=== PATIENT | male | born 1930 | race Caucasian/White ===

== ENCOUNTER 2016-09-12 10:44 | Emergency (ER) | payer MEDICARE, BC ==
[2016-09-12 10:51] VITALS: BP 139/74
--- OUTSIDE RECORDS SUMMARY | 2016-09-12 11:19 | XMS REPORT | Continuity of Care Document ---
:1930 Author Organization [facility] ([facility]) Address [address] [place] [address] Phone [phone] Care Team Providers Name Role Phone Niesha Tate Primary Care Provider [phone] Source Comments This disclosure is being made pursuant to the Care Everywhere program, applicable federal and state laws, and may not contain all informaitonavailable regarding this patient.[facility] ([facility]) Active Allergies and Adverse Reactions Allergen Noted Date Severity Reactions Comments Meperidine Hypotension Current Medications Prescription Sig. Disp. Refills Start End Date Status Date Ascorbic Acid Take 1,000 mg by mouth Active (VITAMIN C) 500 mg daily. CpSR MULTIVITAMINS take by mouth daily. Active (MULTIVITAMIN PO) CHOLECALCIFEROL Take 400 Units by mouth Active (VITAMIN D-3 PO) daily. metoPROLol tartrate Take 25 mg by mouth 2 Active 25 mg tablet times daily. nitroglycerin place 0.4 mg under the Active (NITROSTAT) 0.4 mg tongue every 5 minutes SL tablet as needed. PLACE 1 TABLET UNDER TONGUE EVERY 5 MINUTES FOR 3 DOSES atorvastatin 20 mg Take 1 Tab by mouth 90 Tab 3 Active tablet every evening. 3 Indications: HYPERCHOLESTEROLEMIA omeprazole 20 mg Take 1 Cap by mouth 2 180 Cap 1 Active extended release times daily. 4 capsule Indications: GASTROESOPHAGEAL REFLUX econazole 1 % cream Apply to affected areas 15 g 6 Active daily PRN Indications: 4 TINEA PEDIS sucralfate 1000 mg Take 1 tablet (1,000 mg 90 tablet 11 Active tablet total) by mouth 3 times 6 daily desonide 0.05 % Apply topically 2 times Active cream daily. Apply a thin layer to affected area. ketoconazole 2 % Apply topically 2 times Active cream daily. isosorbide Take 1 tablet (60 mg 90 tablet 3 Active mononitrate 60 mg total) by mouth every 6 CR tablet morning. aspirin 81 mg EC Take 1 tablet (81 mg 11 Active tablet total) by mouth daily. 6 Active Problems Patient Care Coordination Note Date: 11/10/08: Durable [id number] for health care: his , Sherry. Second is Riri Hawkins, friend. Patient is full code. If in a critical care unit he should not be making clear clinical progress in 1 weeks he would want discussion considering transition to palliative care. If he has a swallowing disorder he would want artificial feeding for one month before discontinuing it even if he still has a swallowing disorder. He knows he can change this at any time. Problem Noted Date Angina, class I 03/15/2016 Coronary artery disease 05/18/2014 Overview: Formatting of this note may be different from the original. CARDIOVASCULAR PROCEDURES CIGAR [employer]KER: Cath (1. Normal LV function EF 70% AoV with 10mmHg gradient. 2. Right dominant circulation. LMCA normal. LAD long 99% mid vessel stenosis. Diag 1 70% ostial stenosis. LCX nondominant, normal. RCA 99% mid vessel stenosis. 3. Successful deployment of 3.0x32mm VERIFLEX BMS to mid LAD with 0% residual stenosis. 4. Successful deployment of 3.0x16mm VERIFLEX BMS to mid RCA with 0% residual stenosis. ) - 10/28/2012 STRESS TESTS: [facility] (The stress echo results were normal. 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 Repeat Oct . GERD (gastroesophageal reflux disease) 03/19/2012 Prostate cancer 10/17/2011 Overview: Atypical pathology so unclear if he really has prostate CA. Urology is just following his PSA's. Pseudophakia, both eyes 06/27/2011 Posterior vitreous detachment of both eyes 06/27/2011 Colon polyps 05/19/2009 Overview: Had colonoscopy in '03 and ' with [place]; TV adenoma. Nl in . Repeat in . 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 No therapy. Hearing loss in left ear 11/10/2008 Overview: History is stapedectomy with left-sided hearing loss. No hearing aids. Hypertension Hyperlipidemia Resolved Problems Problem Noted Date Resolved Date Dizziness 07/03/2010 07/05/2016 Overview: Prolonged episode fall . CT w contrast negative (MRI contraindicated due to ear hardware). Subclinical hypothyroidism 11/07/2009 06/28/2015 Overview: Placed on .025 mg thyroid for TSH of 4.9 (nl FT4) and no symptoms. Taken off 11/10 and his TSH remained slightly elevated but acceptable with a normal FT4.. Seborrheic dermatitis 05/20/2009 07/05/2016 Overview: On prn steroid cream Tinea pedis 05/20/2009 06/28/2015 Overview: On prn anti-fungal cream Preventative health care 11/10/2008 07/05/2016 Overview: 1. Last preventive evaluation:11/12 2. Screening: Colorectal Ca; Colonoscopy , hyperplastistic polyp. repated ', nl. Repeat in . Lipids; nl '12. OSH Diabetes; nl '12 OSH DEXA; Vit D; none PSA; see problem list AUA score: 5, 05/11 Geriatric instruments: MMSE; none. Clock; none.GDS; none.Nutrition; none. Hearing/Vision/Skin done at last preventive evaluation. 3. Vaccines: see Health Maintenance section. 4. Preventive notes: none 5. Advance directives: see Living Will under Problem List Shoulder pain 11/10/2008 06/28/2015 Overview: Right shoulder tendinitis-mild, responded to home PT. Most Recent Encounters Date Type Specialty Providers Description 07/23/2016 Office Visit Ophthalmology - Sheldon Edmondson, Dx: History of Specialty scleritis (Primary Dx) 07/05/2016 Office Visit Heart and Vascular Lona Brumfield MD Dx: Coronary artery disease involving karuk coronary artery of karuk heart without angina pectoris (Primary Dx) 06/26/2016 Office Visit Heart and Vascular Lona Brumfield MD Subj: Appointment Canceled Immunizations Name Dates Previously Given Next Due Hepatitis B, unspecified 11/09/1990,06/10/1990,05/06/1990 Influenza 02/28/2009 Influenza, PF 03/08/2011 Influenza, unspecified 03/03/2012,04/19/2008,04/10/2007,04/30/2005, Influenza, unspecified nasal 04/12/2014 Novel Influenza H1N1 05/19/2009 Pneumococcal, unspecified 04/16/2014,04/28/2005 Td, adult unspecified 05/18/2009 Zoster, live (Zostavax) 10/22/2007 Social History Tobacco Use Types Packs/Day Years Used Date Never Smoker Smokeless Tobacco: Never Used Tobacco Cessation:Counseling Given: Yes Comments: Alcohol Use Drinks/Week oz/Week Comments No Last Filed Vital Signs Vital Sign Reading Time Taken Blood Pressure 120/62 07/05/2016 11:01 AM [employer]ACT[employer] IN DIETET[employer] DIRECTOR Pulse 64 07/05/2016 11:01 AM DIDACT[employer] DI[employer] DIRECTOR Temperature 36.3 C (97.3 F) 11/23/2015 12:41 PM CDT Respiratory Rate 16 11/23/2015 12:41 PM CDT Height 1.854 m (6' 1") 07/05/2016 11:01 AM [employer] DIETET[employer] DIRECTOR Weight 83.008 kg (183 lb) 07/05/2016 11:01 AM DIDACT[employer] IN DIETET[employer] DIRECTOR Body Mass Index 24.15 07/05/2016 11:01 AM [employer]ACT[employer] IN DIETET[employer] DIRECTOR Oxygen Saturation 97% 11/23/2015 2:22 PM CDT Plan of Care Patient Goal Type Goal Result Component HDLP above 40 Lifestyle stop the aging process Date Type Specialty Providers Description 10/11/2016 Appointment Dermatology Luli Glodberg, Chief Comp: Patient MD Reported Reason For [address] [place] [address] [phone] (Fax) 01/17/2017 Appointment Heart and Vascular Lona Brumfield MD Subj: Appointment [address] [place] [address] [phone] (Fax) 07/24/2017 Appointment Ophthalmology - Sheldon Edmondson, Subj: Appointment Specialty MD Scheduled [address] [place] [address] [phone] (Fax) Health Maintenance Due Date Last Done Comments AAA Screening 1995 Pneumococcal Vaccine (1 of 2 1995 - PCV13) Lipid Disorder Screening 04/19/2013 04/19/2008, 03/04/2006 Influenza Vaccine: Seasonal 01/02/2016 04/12/2014, Additional history exists (#1) 03/03/2012, 03/08/2011 Td Vaccine 05/18/2019 05/18/2009 Hepatitis B Vaccine Completed 11/09/1990, 06/10/1990, 05/06/1990 Zoster Vaccine Completed 10/22/2007 Tdap Vaccine Addressed 11/21/2010 Overridden with the intention of not completing the topic Results from Last 3 Months Not on file
--- NOTE | 2016-09-12 11:50 | ERNOTE ---
Lower Extremity HPI - General Lower Extremities Pain: ankle: right Time Seen by Provider: 09/12/16 11:11 Source: patient Exam Limitations: no limitations - Immun/Allergies/Home Medications Immunizations: IMMUNIZATION HX Immunizations Up to Date Yes History of Influenza Vaccine Yes Hx Pneumococcal Vaccination Yes Allergies/Adverse Reactions: Allergies Allergy/AdvReac Type Severity Reaction Status Date / Time meperidine HCl [From Demerol] AdvReac Intermediate low bp Verified 09/12/16 10: 51 amoxicillin [Amoxicillin] AdvReac Mild Verified 09/12/16 10:51 clarithromycin AdvReac Mild Verified 09/12/16 10:51 Home Medications: HOME MEDICATIONS Aspirin [Aspir 81] 81 mg PO DAILY 06/12/12 [Last Taken Unknown] Omeprazole [Prilosec Generic] 20 mg PO BID 06/12/12 [Last Taken Unknown] Atorvastatin Calcium 20 mg PO DAILY 10/19/15 [Last Taken Unknown] Metoprolol Succinate 25 mg PO BID 10/19/15 [Last Taken Unknown] Sucralfate [Carafate] 1 g PO TID 10/19/15 [Last Taken Unknown] Ascorbic Acid [Vitamin C] 1,000 mg PO DAILY 04/18/16 [Last Taken Unknown] Cholecalciferol (Vitamin D3) [Vitamin D3] 4,000 unit PO HS 04/18/16 [Last Taken Unknown] Cholecalciferol (Vitamin D3) [Vitamin D3] 8,000 unit PO DAILY 04/18/16 [Last Taken Unknown] Isosorbide Mononitrate [Imdur] 60 mg PO DAILY 04/18/16 [Last Taken Unknown] Lycopene 15 mg PO DAILY 04/18/16 [Last Taken Unknown] Multivitamin [One Daily Essential] 2 each PO DAILY 04/18/16 [Last Taken Unknown] Nitroglycerin [Nitrostat] 0.4 mg SL PRN PRN MDD 1 tab every 5 minutes x 3 [Last Taken Unknown] Aspirin [Ecotrin] 325 mg PO BID #14 tablet. 09/12/16 [Last Taken Unknown] - History of Present Illness Narrative: Patient presents with continuing pain from right ankle sprain that happened several days ago. Patient woke up this morning with the recurrent swelling of the right ankle and some bruising noticed distal to the ankle sprain into the heel on the foot. She is unclear what happened in his sleep last night and why the ankle decided flareup however he has been slightly more active as he thought the ankle was getting better. Review of Systems - Review of Systems Constitutional: Present: See HPI EYE: Present: no symptoms reported ENT: Present: no symptoms reported Respiratory: Present: no symptoms reported Cardiology: Present: no symptoms reported Gastrointestinal/Abdominal: Present: no symptoms reported Genitourinary: Present: no symptoms reported Musculoskeletal: Present: joint pain, joint swelling Skin: Present: no symptoms reported Neurological: Present: no symptoms reported Endocrine: Present: no symptoms reported Hematologic/Lymphatic: Present: no symptoms reported Psych: Present: no symptoms reported - Patient's Past Medical History Patient History - Medical: GERD, Hypothyroidism, Other Patient History - Cardiac/Respiratory: Coronary Heart Disease, Hypertension Patient History - Cancer: Skin Patient History - Surgical Procedures: Appendectomy, Cataracts, Cardiac stent, EGD, T & A, Other Patient History - Other: None - Social History Living Situations: home Abuse History: No History of abuse Psych History: No pertinent hx Alcohol Use: none Drug Use: none - Immunizations Immunizations Up to Date: Yes Hx Pneumococcal Vaccination: Yes History of Influenza Vaccine: Yes Physical Exam - Physical Exam General Appearance: Present: wd/wn, alert, mild distress Eye Exam: Normal inspection: bilateral, PERRL: bilateral Ears, Nose, Throat: Present: normal ENT inspection, H, normal pharynx Neck: Present: normal inspection, nontender Respiratory: Present: no respiratory distress, normal breath sounds, no accessory muscle use, chest nontender, lungs clear Cardiovascular/Chest: Present: regular rate, rhythm, no murmur, normal peripheral pulses Gastrointestinal/Abdominal: Present: normal bowel sounds, nontender, nondistended, soft, no organomegaly Rectal Exam: Present: deferred Back Exam: Present: normal inspection, normal range of motion Extremity Exam: Present: decreased range of motion, joint swelling, other - pt has tenderness to the right ankle joint and ecchymosis distal to the ankle sprain Neurological Exam: Present: alert, oriented, normal mood/affect Skin Exam: Present: normal color, warm/dry Lymphatic Exam: Present: no adenopathy ED Progress - Vital Signs Patient's Vital Signs:: I have reviewed the patient's vital signs. Vital Signs: Vital Signs 09/12/16 10:47 Temperature 36.6 C Pulse Rate 67 Respiratory 12 Rate Blood Pressure 139/74 O2 Sat by Pulse 98 Oximetry - X-Ray X-Ray #1 X-Ray: ankle Interpretation: Reviewed by me - Progress/Reassessment Chief Complaint: Ankle Injury/ Pain Plan - Plan Plan: Patient has apparently recently sprained the right ankle. Patient be placed in a splint and will be started on Ecotrin as he has Shay's esophagus. He is to follow-up with his family physician in a week Departure Clinical Impression: Ankle sprain Qualifiers: Encounter type: initial encounter Involved ligament of ankle: other ligament Laterality: right Qualified Code(s): S93.491A - Sprain of other ligament of right ankle, initial encounter - Departure Disposition: Home self-care Condition: Good Instructions: How to Use a Stirrup Ankle Brace, [id number], Ankle Sprain, [id number] Referrals: Niesha Tate MD [Primary Care Provider] - Prescriptions: Aspirin [Ecotrin] 325 mg PO BID #14 tablet.
== END 2016-09-12 11:54 | disposition home or self-care (01) ==
LOC: ER 10:44
PROC: 2W3QX1Z Immobilization of Right Lower Leg using Splint (ICD-10-PCS; principal; 2016-09-12)
DX: S93.491A Sprain of other ligament of right ankle, initial encounter (principal); Z85.828 Personal history of other malignant neoplasm of skin; K21.9 Gastro-esophageal reflux disease without esophagitis; I10 Essential (primary) hypertension; I50.9 Heart failure, unspecified; Z95.5 Presence of coronary angioplasty implant and graft; X50.1XXA Overexertion from prolonged static or awkward postures, initial encounter